=== PATIENT | female | born 2000 | race Asian ===

== ENCOUNTER 2022-10-17 20:50 | Emergency (ER) | payer OTHER ==
[~2022-10-17] VITALS: Ht 160 cm; Wt 84.7 kg
[2022-10-17 23:31] LABS: HEMATOCRIT 37.8 % (36.0-47.0); HEMOGLOBIN 12.4 g/dl (12.0-15.5); MEAN CORPUSCULAR HEMOGLOBIN 28.6 pg (27.0-33.0); MEAN CORPUSCULAR HGB CONC 32.8 g/dl (32.0-36.5); MEAN CORPUSCULAR VOLUME 87.1 fl (80.0-96.0); PLATELET COUNT, AUTOMATED 275 10^3/uL (150-450); RED BLOOD COUNT 4.34 10^6/uL (4.00-5.40); WHITE BLOOD COUNT 9.9 10^3/uL (4.0-10.0)
[2022-10-17 23:54] LABS: BLOOD UREA NITROGEN 11 MG/DL (9-23); CALCIUM LEVEL 8.6 MG/DL (8.5-10.1); CARBON DIOXIDE LEVEL 23 MMOL/L (20-31); CHLORIDE LEVEL 105 MMOL/L (98-107); CREATININE FOR GFR 0.55 MG/DL (0.55-1.30); GLOMERULAR FILTRATION RATE > 60.0 (>60); GLUCOSE, FASTING 119 MG/DL (60-100); POTASSIUM SERUM 3.2 MMOL/L (3.5-5.1); SODIUM LEVEL 137 MMOL/L (136-145)
[2022-10-18] MEDS ORDERED: ACETAMINOPHEN 500 MG TAB PO ONE (00:05)
[2022-10-18 00:10] LABS: HCG, SERUM QUANTITATIVE 12167.5 MIU/ML (<4.2)
[2022-10-18] MEDS ORDERED: prenatal (00:59)
[2022-10-18] MEDS ORDERED: PERCOCET 5MG/325MG TAB PO ONE (01:50)
[2022-10-18] MEDS ORDERED: OXYCODONE/APAP 5MG/325MG(HOME DOSE PACK) PO ONE (01:50)
[2022-10-18] MEDS ORDERED: PERC5TAB12 PO (01:56)
[2022-10-18 03:39] VITALS: BP 110/56
== END 2022-10-18 04:31 | disposition home or self-care (01) ==
LOC: M ED 20:50
DX: O02.1 Missed abortion (principal); Z79.810 Long term (current) use of selective estrogen receptor modulators (SERMs); Z79.891 Long term (current) use of opiate analgesic